=== PATIENT | male | born 1985 | race American Indian/Alaskan Native ===

== ENCOUNTER 2017-01-08 13:05 | Emergency (ER) | payer SELFPAY ==
[2017-01-08 13:25] VITALS: BP 138/76
[2017-01-08 13:41] LABS: Basophils % (Auto) 0.4 % (0.0-1.8); Eosinophils % (Auto) 0.3 % (0.0-4.3); Hematocrit 50.2 % (35.5-45.6); Hemoglobin 16.4 gm/dl (11.8-15.2); Mean Corpuscular HGB Conc 33 % (32-34); Mean Corpuscular Hemoglobin 27 pg (28-32); Mean Corpuscular Volume 81 fl (84-94); Platelet Count 212 K/mm3 (140-440); Red Blood Count 6.18 M/mm3 (3.65-5.03); Red Cell Distribution Width 13.4 % (13.2-15.2); White Blood Count 10.1 K/mm3 (4.5-11.0)
[2017-01-08 13:54] LABS: Anion Gap 21 mmol/L; BUN/Creatinine Ratio 5.83; Blood Urea Nitrogen 7 mg/dL (9-20); Calcium 10.2 mg/dL (8.4-10.2); Carbon Dioxide 27 mmol/L (22-30); Glucose 98 mg/dL (75-100); Potassium 4.5 mmol/L (3.6-5.0); Sodium 143 mmol/L (137-145)
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
[2017-01-08 18:16] LABS: Urine Drugs of Abuse Note Disclamer
[2017-01-08 18:25] LABS: Bilirubin,Urine SM (Negative); Blood,Urine NEG (Negative); Ketones,Urine 20 mg/dL (Negative); Leukocyte Esterase,Urine NEG (Negative); Mucus,Urine 3+ /HPF; Nitrite,Urine NEG (Negative)
[2017-01-08] MEDS ORDERED: TYLENOL ONE (21:33)
[2017-01-08] MEDS: TYLENOL PO PRN (21:35)
[2017-01-09] MEDS: TYLENOL PO PRN ×3 (01:27→10:28)
--- NOTE | 2017-01-09 10:32 | Consultation ---
History of Present Illness - Reason for Consult Consult date: 01/09/17 Reason for consult: evaluate for depression and to see if he meets criteria for 1013 Medications and Allergies Allergies Allergy/AdvReac Type Severity Reaction Status Date / Time No Known Allergies Allergy Unverified 07/25/13 10:13 Home Medications Medication Instructions Recorded Confirmed Last Taken Type No Known Home Medications [No 01/09/17 01/09/17 Unknown History Reported Home Medications] Active Meds: Active Medications Acetaminophen (Tylenol) 650 mg PO Q4HR PRN PRN Reason: Pain Stop: 01/13/17 21:29 Last Admin: 01/09/17 01:34 Dose: 650 mg Mental Status Exam - Vital signs Last Vital Signs Temp 97.8 F 01/08/17 13:24 Pulse 100 H 01/08/17 13:24 Resp 20 01/08/17 14:09 BP 138/76 01/08/17 13:24 Pulse Ox 100 01/08/17 14:09 Results Result Diagrams: 01/08/17 13:26 01/08/17 13:26 Abnormal lab results 01/08/17 01/08/17 Range/Units 13:26 13:26 RBC 6.18 H (3.65-5.03) M/mm3 Hgb 16.4 H (11.8-15.2) gm/dl Hct 50.2 H (35.5-45.6) % MCV 81 L (84-94) fl MCH 27 L (28-32) pg Lymph % (Auto) 11.2 L (13.4-35.0) % Lewis % (Auto) 9.8 H (0.0-7.3) % Lymph # 1.1 L (1.2-5.4) K/mm3 Lewis # 1.0 H (0.0-0.8) K/mm3 Seg Neutrophils % 78.3 H (40.0-70.0) % Seg Neutrophils # 7.9 H (1.8-7.7) K/mm3 BUN 7 L (9-20) mg/dL All other labs normal. Assessment and Plan Assessment and plan: CHIEF COMPLAINT IN PATIENTS WORDS: HISTORY OF PRESENT ILLNESS REQUIRING ADMISSION TO INPATIENT LEVEL OF CARE: (Describe the onset of Illness, Intensity of Symptoms, and Circumstances Leading to Admission) This is a 31 year-old domiciled male who reports no formal past psychiatric history now presenting under police custody after a verbal altercation with his girlfriend. She notes that he was recently in longterm for likely distribution of marijuana and he was having a dispute with his girlfriend because he no longer wanted to sell marijuana. During the altercation, neighbors called the police and when the police arrived, the patient believed that the girlfriend had called them. Consequently he noted he wanted to get a reaction out of her and to get her to be more compassionate towards his point of view; therefore, he reported that he wanted to harm himself. He notes that he had no intention of doing so. Additionally, he notes that he was only doing this to get attention from his girlfriend. Patient did not engage in any suicidal gesture. He did not engage in any self-harm behaviors. Patient furthermore has no history of suicidal gestures or behaviors. PSYCHIATRIC REVIEW OF SYSTEMS: Substance: Marijuana several times a day, cigarettes several times a day. Depression: denies Trinity: denies labile moods, no flight of ideas, not impulsive Psychosis: no AVH. No paranoia/grandiosity/erotomania Anxiety/ OCD/ PTSD: denies somatic symptoms, flashbacks, nightmares, avoidance, panic attacks Suicidality: denies SI Other Self-Injurious Behavior: none currently, no SIB noted recently Violent/ Aggressive Behavior: none noted CURRENT MEDICATIONS: ( Psychiatric and Non-psychiatric ) None ALLERGIES: NKDA PAST PSYCHIATRIC HISTORY: ( Prior Treatment, Precipitating Factors, Diagnosis, and Course of Treatment ) Inpatient: none Outpatient: none Prior Suicide Attempts: denies Prior Self-Injurious Behaviors: denies PAST PSYCHIATRIC MEDICATION TRIALS: Denies MEDICAL HISTORY: (Chronic and Acute Illnesses, Current Medical Treatment, Recent Hospitalizations) Denies HISTORY OF TRAUMA/ABUSE: Patient denies on clinical examination DRUG / ALCOHOL ABUSE HISTORY: Denies Detoxification / Withdrawal: none noted SOCIAL HISTORY: (Educational Level, Employment, Support System, Interpersonal Relationships) FAMILY HISTORY: Psychiatric/Substance Abuse MENTAL STATUS EXAM: General Appearance: casually dressed, in acute distress Sensorium/Consciousness: alert and responding to external stimuli Eye Contact: limited Attitude / Behavior: cooperative Psychomotor & Musculoskeletal Activity: WNL Mood: fine Affect: euthymic Speech / Language: normal Thought Processes: organized, logical, linear Thought Content: no SI, no HI Perception: no AVH Orientation: person, place, time and situation Concentration/Attention WORLD backwards: DLROW Memory Immediate Digit Span (0-5-3-9-3-1-5): [id number] Memory Recent (Objects: Lamp, Umbrella, and Telephone) Patient Response: 3/3 Memory Remote (Name as many presidents as you can starting with current one and going backwards) Patient Response: 2 Judgment What would you do if you smelled smoke in a crowded movie theater?: good Insight: good Intelligence Vocabulary, general fund of knowledge, educational level : Average Capacity of ADLs: Independent STRENGTHS: Employed, supportive family, future oriented, family oriented PSYCHOSOCIAL AND ENVIRONMENTAL STRESSORS: Periodic financial difficulties ADMITTING DIAGNOSES Psychiatric: None Evidence for the following: Medical: n/a INITIAL PLAN OF CARE AND TREATMENT GOALS: I. This screening and assessment is based on information collected from the following sources: II. SUICIDE RISK SCREENING (within last 30 days): A.) Suicidal thoughts/behaviors: Recent expression of SI SUICIDE RISK ASSESSMENT III. FACTORS THAT INCREASE RISK: A.) Demographic and Substance Use Factors: Chronic use of marijuana B.) Current/Recent Factors (within past 3 months): Psychosocial/Environmental Factors: Financial stressors Physical Illness: None Cognitive/Psychological Factors: None C.) Historical Factors: Recent incarceration for 7 days in longterm D.) Diagnostic/Symptom/Treatment Factors: None E.) Acute Risk Factor Severity (DESC; MILD/MOD/SEVERE) mild Other factors for this individual that increase risk: IV. FACTORS THAT DECREASE RISK: Resilience/Protective Factors: Intermittent psychosocial supports Other factors for this individual that decrease risk: Patient reports he is future oriented and currently denying a desire to harm self. V. Clinician's Formulation of Risk and Determination of level of Care: This is a 31-year-old male who is having both chronic and acute stressors which have brought him to the ER. Just prior to the ER presentation patient was angry during a dispute with his girlfriend and verbalized desire to harm himself for the express purpose of obtaining some compassion from his girlfriend. Since being hospitalized, the patient has consistently denied the desire to harm himself. He has been in the ER for over 24 hours and has not shown any gestures and consistently denied desire to harm himself. Additionally , patient is no longer acutely angry about the situation that he was having a dispute with his girlfriend. Additionally, he has become insightful about the dispute and aware of how to resolve the specific interpersonal conflict they were fighting about. Consequently, it is the opinion of the treatment team that the patient is at low risk at the current time given the above interventions that were implemented in his care. Estimation of Imminent Risk: Low due to the above explanation Determination of Level of Care based on Suicide Risk: Outpatient follow-up. Furthermore, patient has had consistently denied the desire to harm himself. Additionally, those thoughts were ego-dystonic in nature to begin with and the patient had no intent or clear plan to execute on those thoughts. Narrative description of clinical reasoning. (This must be completed on all patients): . Plan and Interventions based on Suicide Risk: This patient will likely be stepped down to an outpatient mental health center in the community upon discharge and follow-up within 7 days of his discharge from the hospital. VII. Discharge/After Hours Support Plan: Patient can return back to the ER, call 911 or crisis line if symptoms of depression, anxiety, suicidality return.
== END 2017-01-09 12:30 | disposition home or self-care (01) ==
LOC: ED 13:05 → EEVIPCON 13:05 → ED 01-09 12:30
DX: F31.9 Bipolar disorder, unspecified (principal); F20.9 Schizophrenia, unspecified; F17.210 Nicotine dependence, cigarettes, uncomplicated; F12.10 Cannabis abuse, uncomplicated
CPT/HCPCS: 36415; 80048; 80307; 81001; 85025; 99283; G0480; 80320